=== PATIENT | male | born 1980 | race Asian ===

== ENCOUNTER 2022-01-20 07:57 | Day surgery (SDC) | payer OTHER ==
[~2022-01-20] VITALS: Ht 190.5 cm; Wt 83.0 kg
[2022-01-20] MEDS ORDERED: fentaNYL citrate 0.05 MG/ML VIAL ONE (09:45)
[2022-01-20] MEDS ORDERED: LIDOCAINE 2% 100 MG/5 ML UJET TP ONE (09:46)
[2022-01-20] MEDS ORDERED: MIDAZOLAM 5 MG/5 ML VIAL ONE (09:46)
[2022-01-20] MEDS ORDERED: MIDAZOLAM 5 MG/5 ML VIAL IV ONE (11:40)
[2022-01-20] MEDS ORDERED: fentaNYL citrate 0.05 MG/ML VIAL IVP ONE (11:40)
== END 2022-01-20 11:00 | disposition home or self-care (01) ==
LOC: MOR 07:57 → MMU 07:57 → MOR 11:00
PROVIDERS: ATTEND Internal Medicine Gastroenterology
DX: K62.5 Hemorrhage of anus and rectum (principal); Z80.0 Family history of malignant neoplasm of digestive organs; R19.7 Diarrhea, unspecified; K21.9 Gastro-esophageal reflux disease without esophagitis; K30 Functional dyspepsia; Z79.899 Other long term (current) drug therapy; Z20.822 Contact with and (suspected) exposure to COVID-19
CPT/HCPCS: 36415; 43239; 45380; 86677; 87426; J2250; J3010; 88304